=== PATIENT | male | born 1995 | race Caucasian/White ===

== ENCOUNTER 2019-10-25 09:37 | Emergency (ER) | payer BC, SELFPAY ==
[2019-10-25 10:07] VITALS: BP 128/90; PULSE 88; RESP 22; TEMP 36.9; O2SAT 98
[2019-10-25] MEDS: LACTATED RINGERS 1,000 ML 999 ML IV CONT (10:21)
--- NOTE | 2019-10-25 10:23 | WPDEDEXPGENP ---
HPI - General Ped General Chief complaint: Fever Stated complaint: Fever x4 days Time Seen by Provider: 10/25/19 09:41 Source: patient Mode of arrival: ambulatory Limitations: no limitations History of Present Illness HPI narrative: Patient is a 24-year-old male who presents to emergency department for evaluation of upper respiratory symptoms that began 4 to 5 days ago with chills and body aches congestion rhinorrhea had a couple episodes of emesis which has resolved has been taking [id number] medications with minimal improvement notes minimal p.o. intake with concern for dehydration on arrival in no distress has been taking [id number] medications with some improvement Related Data Home Medications Medication Instructions Recorded Confirmed No Home Medications 10/25/19 10/25/19 Allergies Allergy/AdvReac Type Severity Reaction Status Date / Time No Known Allergies Allergy Verified 10/25/19 10:10 Pediatric Review of Systems : All systems ED: reviewed and negative except as stated PMFSH Surgical History Surgical History (Updated 10/25/19 @ 10:26 by Celestino Tamayo PA-C) History of tonsillectomy Social History Social History Gender identity (if verbalized by the patient): Male Pediatric Exam Narrative: Physical exam: GENERAL: Well-appearing, well-nourished, and in no acute distress. HEAD: Normocephalic, atraumatic. EYES: PERRLA and EOMI. ENT: Nares clear, no rhinorrhea or epistaxis. Mucous membranes moist. Oropharynx without tonsillar hypertrophy exudate or other lesions. NECK: Supple. No adenopathy or masses. CHEST: Clear to auscultation. No respiratory distress. No wheezes rales or rhonchi HEART: Regular rate and rhythm. No murmur heard. Normal peripheral pulses. ABDOMEN: Soft, nontender, nondistended EXTREMITIES: Normal range of motion. No edema. SKIN: Warm, dry, no rash. NEURO: No focal deficits. Alert and oriented x3. PSYCH: Normal mood and affect. Course Course Emergency Course: Patient in the room in no distress aware of case findings treatment plan and diagnosis Vital Signs Vital signs: Vital Signs Temperature 98.5 F 10/25/19 10:07 Pulse Rate 88 10/25/19 10:07 Respiratory Rate 22 H 10/25/19 10:07 Blood Pressure 128/90 10/25/19 10:07 Pulse Oximetry 98 10/25/19 10:07 Temperature 98.5 F 10/25/19 10:07 Pulse Rate 88 10/25/19 10:07 Respiratory Rate 22 H 10/25/19 10:07 Blood Pressure 128/90 10/25/19 10:07 Pulse Oximetry 98 10/25/19 10:07 Medical Decision Making MDM Narrative Medical decision making narrative: Patient with influenza afebrile nontoxic-appearing no distress hydrated in the emergency department felt appropriate for outpatient reevaluation provided with reasons to return Vital Signs Vital Signs: Vital Signs Temperature 98.5 F 10/25/19 10:07 Pulse Rate 88 10/25/19 10:07 Respiratory Rate 22 H 10/25/19 10:07 Blood Pressure 128/90 10/25/19 10:07 Pulse Oximetry 98 10/25/19 10:07 Temperature 98.5 F 10/25/19 10:07 Pulse Rate 88 10/25/19 10:07 Respiratory Rate 22 H 10/25/19 10:07 Blood Pressure 128/90 10/25/19 10:07 Pulse Oximetry 98 10/25/19 10:07 Lab Data Labs: Influenza A Screen Positive Reference Range: Negative Influenza B Screen Negative Reference Range: Negative Discharge Plan Discharge Clinical Impression: Influenza Patient Disposition: Home, Self-Care Condition: Stable Instructions: Antibiotic Form, Influenza (ED) Additional Instructions: Follow up with your primary care provider within 5-7 days. Go to ER for shortness of breath, difficulty breathing, chest pain, fever/chills, weakness, nauseau/vomitting, etc. or any other concerns. Stay well-hydrated Take any prescribed medications as directed. Follow patient education sheets If you do not have a drug allergy
[2019-10-25 11:13] VITALS: BP 121/69; PULSE 68; RESP 19; O2SAT 99
--- NOTE | 2019-10-31 07:17 | PC.NURSE ---
LATE ENTRY This note is being entered to document information to the patient's record. The following information was omitted on 10/25/2019, by Barbara Machado RN. IV Ofirmev stopped at 1003, LR stopped at 1049 by this RN.
== END 2019-10-25 11:14 | disposition home or self-care (01) ==
PROVIDERS: Emergency Provider Emergency Medicine
DX: J10.1 Influenza due to other identified influenza virus with other respiratory manifestations (principal)
CPT/HCPCS: 87804; 96374; 99284; J0131; J7120